=== PATIENT | male | born 1940 | race Caucasian/White ===

== ENCOUNTER 2016-10-21 17:15 | Emergency (ER) | payer MEDICARE, OTHER ==
--- NOTE | 2016-10-21 18:01 | ED Physician Documentation ---
PD HPI HEENT - Stated complaint Stated Complaint: DOUBLE VISION - Chief complaint Chief Complaint: Heent - History obtained from History obtained from: Patient, Family - History of Present Illness Timing - onset: How many days ago (2) Timing - duration: Days (2) Timing - details: Gradual onset Pain level max: 1 Pain level now: 1 Location: Other (mild headache) Improves: Nothing Associated symptoms: Headache (mild, holocranial). No: Fever, Congestion, Rhinorrhea, Trismus, Unable to swallow, Swollen nodes, Facial swelling - Additional information Additional information: noted horizontal diploplia for the past 2 days. resolves when covering one eye or the other. Review of Systems Ten Systems: 10 systems reviewed and negative Constitutional: denies: Fever, Chills Eyes: denies: Loss of vision, Decreased vision Ears: denies: Ear pain Nose: denies: Rhinorrhea / runny nose, Congestion Throat: denies: Sore throat Cardiac: denies: Chest pain / pressure Respiratory: denies: Cough GI: denies: Abdominal Pain, Nausea, Vomiting, Diarrhea Skin: denies: Rash Musculoskeletal: denies: Neck pain, Back pain Neurologic: denies: Focal weakness, Numbness, Headache PD PAST MEDICAL HISTORY - Past Medical History Past Medical History: Yes Cardiovascular: Hypertension, High cholesterol, [place] Neuro: Seizure disorder Endocrine/Autoimmune: Type 2 diabetes - Past Surgical History Past Surgical History: Yes General: Appendectomy, Bowel surgery Cardiovascular: CABG, Coronary stent - Present Medications Home Medications: Ambulatory Orders Medication Instructions Recorded Confirmed Aspirin 81 mg PO DAILY 10/21/16 10/21/16 Atorvastatin Calcium 40 mg PO DAILY 10/21/16 10/21/16 Levetiracetam [Keppra] 750 mg PO BID 10/21/16 10/21/16 Losartan/Hydrochlorothiazide 1 tab PO DAILY 10/21/16 10/21/16 [Losartan-Hctz 100-25 mg Tab] Metformin HCl 250 mg PO BID 10/21/16 10/21/16 Metoprolol Tartrate 25 mg PO BID 10/21/16 10/21/16 - Allergies Allergies/Adverse Reactions: Allergies Allergy/AdvReac Type Severity Reaction Status Date / Time diltiazem HCl * Allergy Unknown Verified 10/21/16 17:26 [From Cardizem] levofloxacin [From Levaquin] Allergy Unknown Verified 10/21/16 17:26 metronidazole Allergy Unknown Verified 10/21/16 17:26 sodium penathol Allergy Unknown Uncoded 10/21/16 17:26 - Social History Does the pt smoke?: No Smoking Status: Never smoker PD ED PE NORMAL - Vitals Vital signs reviewed: Yes - General General: Alert and oriented X 3, No acute distress, Well developed/nourished - HEENT HEENT: Atraumatic, PERRL, Ears normal, Moist mucous membranes, Pharynx benign - Neck Neck: Supple, no meningeal sign - Cardiac Cardiac: RRR - Respiratory Respiratory: No respiratory distress, Clear bilaterally - Abdomen Abdomen: Soft, Non tender, Non distended - Derm Derm: Warm and dry - Neuro Neuro: Alert and oriented X 3, No motor deficit, No sensory deficit, Normal speech, Other (L CN palsy. ) GCS Score: 15 - Psych Psych: Normal mood, Normal affect Results - Vitals Vitals: Vital Signs - 24 hr 10/21/16 10/21/16 10/21/16 17:20 19:14 20:01 Temperature 36.0 C L Heart Rate 66 62 65 Respiratory 18 15 18 Rate Blood Pressure 210/90 H 200/77 H 220/79 H O2 Saturation 97 96 10/21/16 10/21/16 10/21/16 20:03 20:05 20:15 Temperature Heart Rate 62 61 62 Respiratory 18 19 Rate Blood Pressure 201/85 H 223/77 H 213/94 H O2 Saturation 96 96 10/21/16 10/21/16 10/21/16 20:27 20:47 21:03 Temperature Heart Rate 65 72 77 Respiratory 16 17 17 Rate Blood Pressure 175/65 H 179/77 H 180/67 H O2 Saturation 97 97 97 10/21/16 10/21/16 22:13 22:51 Temperature 36.4 C L Heart Rate 75 62 Respiratory 14 14 Rate Blood Pressure 189/77 H 175/67 H O2 Saturation 96 97 Oxygen O2 Source Room air - Labs Labs: Laboratory Tests 10/21/16 10/21/16 10/21/16 18:00 18:00 18:40 WBC 7.5 RBC 4.39 L Hgb 14.8 Hct 43.3 MCV 98.7 H MCH 33.7 H MCHC 34.1 RDW 13.3 Plt Count 155 MPV 7.4 Neut # 5.0 Lymph # 1.6 [place] # 0.8 Eos # 0.0 Baso # 0.0 Absolute Nucleated RBC 0.01 Nucleated RBCs 0.1 Sodium 130 L Potassium 3.7 Chloride 93 L Carbon Dioxide 28 Anion Gap 9.0 BUN 17 Creatinine 0.9 Estimated GFR (MDRD) 82 L Glucose 153 H Calcium 9.5 Total Bilirubin 0.9 AST 25 ALT 31 Alkaline Phosphatase 42 Total Protein 7.6 Albumin 4.2 Globulin 3.4 Albumin/Globulin Ratio 1.2 Lipase 23 Urine Color YELLOW Urine Clarity CLEAR Urine pH 6.0 Ur Specific [place] 1.025 Urine Protein TRACE Urine Glucose (UA) NEGATIVE Urine Ketones NEGATIVE Urine Occult Blood TRACE-INTA Urine Nitrite NEGATIVE Urine Bilirubin NEGATIVE Urine Urobilinogen 0.2 (NORMAL) Ur Leukocyte Esterase NEGATIVE Ur Microscopic Review NOT INDICATED Urine Culture Comments NOT INDICATED - Rads (name of study) head CT Radiology: Prelim report reviewed, EMP read contemporaneously, See rad report ( No intracranial hemorrhage, mass lesion, or discrete acute intracranial process identified. Acute stroke is not excluded by CT. ) PD MEDICAL DECISION MAKING - ED course Complexity details: reviewed results, re-evaluated patient, considered differential, d/w patient, d/w family, d/w senior talent management consultant ED course: Patient is a 76-year-old male who presents to the emergency department with 2 days of horizontal diplopia. This resolves when covering one eye or the other. Found to have a left cranial nerve palsy. Isolated. No Camacho syndrome. No acute findings on head CT. He was hypertensive in the emergency department, but this improved with hydralazine. He states he did not take his medications today. I recommend strongly that he take his medications as prescribed. Discussed with the provider control valve mechanic for his primary care physician, Dr. Moreno who will make sure he gets followed up closely as an outpatient. Will likely need an MRI. No evidence of stroke. Patient is well-appearing, no evidence of infection. Patient and his state that they did recently get over a viral illness, possible that the isolated cranial nerve palsy is secondary to this viral syndrome. No evidence of endorgan damage with the hypertension. Patient and family counseled regarding signs and symptoms for which I believe and urgent re-evaluation would be necessary. Patient with good understanding of and agreement to plan and is comfortable going home at this time. NIHSS 0 This document was made in part using voice recognition software. While efforts are made to proofread this document, sound alike and grammatical errors may occur. Departure - Departure Disposition: 01 Home, Self Care Clinical Impression: Cranial nerve palsy Qualifiers: Laterality: left Qualified Code(s): H49.22 - Sixth [abducent] nerve palsy, left eye Hypertension Qualifiers: Hypertension type: unspecified secondary hypertension Qualified Code(s): I15.9 - Secondary hypertension, unspecified Condition: Good Instructions: ED HTN Established, Palsy Sixth Nerve About Follow-Up: Lon Multani MD [Primary Care Provider] - Tomorrow (call for appointment) Comments: Return if you worsen. You need to keep track of your blood pressures at home and likely need a brain MRI. I spoke with Dr. Tiffanie rider. Call the office in the morning. Discharge Date/Time: 10/21/16 22:51
[2016-10-21 18:10] LABS: BASOPHILS % (AUTO) 0.4 %; EOSINOPHILS % (AUTO) 0.6 %; HCT - HEMATOCRIT 43.3 % (42.0-52.0); HGB - HEMOGLOBIN 14.8 g/dL (14.0-18.0); LYMPHOCYTES # (AUTO) 1.6 10^3/uL (1.5-3.5); LYMPHOCYTES % (AUTO) 21.7 %; MEAN CORPUSCULAR HEMOGLOBIN 33.7 pg (27.0-31.0); MEAN CORPUSCULAR HGB CONC 34.1 g/dL (32.0-36.0); MEAN CORPUSCULAR VOLUME 98.7 fL (80.0-94.0); MEAN PLATELET VOLUME 7.4 fL (7.4-11.4); MONOCYTES # (AUTO) 0.8 10^3/uL (0.0-1.0); MONOCYTES % (AUTO) 10.4 %; NEUTROPHILS % (AUTO) 66.9 %; NUCLEATED RED BLOOD CELLS AUTO 0.1 /100WBC; RED BLOOD COUNT 4.39 10^6/uL (4.70-6.10); RED CELL DISTRIBUTION WIDTH 13.3 % (12.0-15.0); UNCORRECTED WHITE BLOOD COUNT 7.5 x10^3/uL; WHITE BLOOD COUNT 7.5 x10^3/uL (4.8-10.8)
[2016-10-21 18:21] LABS: ALBUMIN/GLOBULIN RATIO 1.2 (1.0-2.2); BILIRUBIN,TOTAL 0.9 mg/dL (0.2-1.0); CALCIUM 9.5 mg/dL (8.5-10.3); CREATININE 0.9 mg/dL (0.6-1.2); POTASSIUM 3.7 mmol/L (3.5-5.0); TOTAL PROTEIN 7.6 g/dL (6.7-8.2)
--- NOTE | 2016-10-21 19:00 | CT Preliminary Report ---
Exam: CT Head W/O Impression: No intracranial hemorrhage, mass lesion, or discrete acute intracranial process identified. Acute str wesley is not excluded by CT. SITE ID: [id number]
--- NOTE | 2016-10-21 19:03 | CT Report ---
EXAM: CT HEAD WITHOUT CONTRAST COMPARISON: None. CLINICAL HISTORY: Diplopia, hypertension TECHNIQUE: Axial CT images were obtained from the foramen magnum to the vertex without contrast In accordance with CT protocol optimization, one or more of the following dose reduction techniques w ere utilized for this exam: automated exposure control, adjustment of mA and/or KV based on patient s ize, or use of iterative reconstructive technique. FINDINGS: No intracranial hemorrhage. No mass lesions. No unexpected intra-or extra-axial fluid collections. Visualized orbits, paranasal sinuses and mastoids are unremarkable. Ventricles are prominent, temporal horns, presumed to reflect volume loss, asymmetrically involving t he hippocampi. No dense vessels. Visualized orbits, paranasal sinuses and mastoids are unremarkable. Impression: No intracranial hemorrhage, mass lesion, or discrete acute intracranial process identified. Acute str wesley is not excluded by CT. Referring Provider Line: [phone] SITE ID: [id number]
[2016-10-21 19:09] LABS: BILIRUBIN,URINE NEGATIVE (NEGATIVE)
[2016-10-21 19:12] LABS: UA CHARGE (STRIP ONLY) YES; UR CULTURE IF IND NOT INDICATED
[2016-10-21] MEDS ORDERED: METOPROLOL 5 MG/5 ML VIAL IVP STA (19:35)
[2016-10-21] MEDS ORDERED: SODIUM CHLORIDE 0.9% 1,000 ML IV ONE (19:36)
[2016-10-21] MEDS ORDERED: METOPROLOL 5 MG/5 ML VIAL IVP ONE (19:53)
[2016-10-21] MEDS ORDERED: hydrALAZINE INJ 20 MG/ML VIAL IVP STA (20:14)
[2016-10-21] MEDS ORDERED: MORPHINE 2 MG/ML SYRINGE IVP STA (20:15)
[2016-10-21] MEDS ORDERED: MORPHINE 2 MG/ML SYRINGE ONE (20:16)
[2016-10-21] MEDS ORDERED: hydrALAZINE INJ 20 MG/ML VIAL ONE (20:17)
[2016-10-21 22:57] VITALS: BP 175/67
== END 2016-10-21 22:51 | disposition home or self-care (01) ==
LOC: ED 17:15
DX: H49.22 Sixth [abducent] nerve palsy, left eye (principal); I10 Essential (primary) hypertension; I25.2 Old myocardial infarction; E11.9 Type 2 diabetes mellitus without complications; Z79.82 Long term (current) use of aspirin; Z95.1 Presence of aortocoronary bypass graft; Z95.5 Presence of coronary angioplasty implant and graft
CPT/HCPCS: 36415; 70450; 80053; 81001; 81003; 83690; 85025; 87086; 96361; 96374; 96375; 99284

== ENCOUNTER 2016-10-23 07:37 | Outpatient (CLI) | payer MEDICARE, OTHER | END 2016-10-23 07:38 | disposition critical access hospital (66) | LOC: EMS 07:37 | PROVIDERS: ATTEND Surgery | DX: R07.9 Chest pain, unspecified (principal) | CPT/HCPCS: A0425; A0427 ==

== ENCOUNTER 2016-10-23 08:05 | Emergency (ER) | payer MEDICARE, OTHER ==
--- NOTE | 2016-10-23 08:10 | ED Physician Documentation ---
PD HPI CHEST PAIN - Stated complaint Stated Complaint: CP - History obtained from History obtained from: Patient, EMS - History of Present Illness Timing - onset: Today Timing - onset during: Rest (had some left chest pain when getting out of bed, associated with elevated BP. Has been having low back, thighs, knees pain for several weeks or more, worsening, along with general weakness. Does have history of CAD but no recent exertional CP. Had some chest pain this morning, and given NTG by EMS, with drop in BP.) Timing - duration: Minutes (20-30) Timing - details: Abrupt onset, Now resolved Quality: Aching, Pain Location: Left chest Radiation: No: Back, Abdominal Worsened by: No: Inspiration, Movement, Palpation Associated symptoms: No: Shortness of air, Diaphoresis, Nausea, Cough Similar symptoms before: Diagnosis (has had CAD in the past, but no CP for past 2-3 years since last stents placed.) Recently seen: Emergency Dept (2 days ago for diplopia and has left 6th nerve palsy without obvious cause.) Review of Systems Constitutional: reports: Myalgias (for months, in low back and legs - seen by Neurologist with EMGs and labs done without current Dx.). denies: Fever, Chills Eyes: reports: Decreased vision (diplopia for 3 days) Ears: denies: Ear pain Nose: denies: Rhinorrhea / runny nose, Congestion Throat: denies: Sore throat Cardiac: denies: Palpitations, Pedal edema, Calf pain Respiratory: denies: Cough, Wheezing GI: denies: Abdominal Pain, Nausea, Vomiting, Diarrhea, Hematemesis, Bloody / black stool : denies: Dysuria, Frequency Musculoskeletal: reports: Back pain (chronic recurrent) Neurologic: reports: Generalized weakness (for few months, worsening). denies: Focal weakness, Numbness Psychiatric: denies: Depressed, Anxiety, Insomnia Endocrine: denies: Weight loss, Easy bruising / bleeding Immunocompromised: denies: Immunocompromised PD PAST MEDICAL HISTORY - Past Medical History Cardiovascular: Hypertension, High cholesterol, [place] Neuro: Seizure disorder Endocrine/Autoimmune: Type 2 diabetes - Past Surgical History Past Surgical History: Yes General: Appendectomy, Bowel surgery Cardiovascular: CABG, Coronary stent - Present Medications Home Medications: Ambulatory Orders Medication Instructions Recorded Confirmed Aspirin 81 mg PO DAILY 10/21/16 10/23/16 Atorvastatin Calcium 40 mg PO DAILY 10/21/16 10/23/16 Levetiracetam [Keppra] 750 mg PO BID 10/21/16 10/23/16 Losartan/Hydrochlorothiazide 1 tab PO DAILY 10/21/16 10/23/16 [Losartan-Hctz 100-25 mg Tab] Metformin HCl 250 mg PO BID 10/21/16 10/23/16 Metoprolol Tartrate 25 mg PO BID 10/21/16 10/23/16 Dexamethasone [Decadron] 4 mg PO DAILY #7 tablet 10/23/16 HYDROcod/ACETAM 5/325 [[place] 5/325] 1 tab PO Q6H PRN #15 tablet 10/23/16 - Allergies Allergies/Adverse Reactions: Allergies Allergy/AdvReac Type Severity Reaction Status Date / Time diltiazem HCl * Allergy Unknown Verified 10/23/16 08:16 [From Cardizem] levofloxacin [From Levaquin] Allergy Unknown Verified 10/23/16 08:16 metronidazole Allergy Unknown Verified 10/23/16 08:16 yellow dye Allergy Edema Verified 10/23/16 08:17 sodium penathol Allergy Unknown Uncoded 10/23/16 08:16 - Social History Does the pt smoke?: No Smoking Status: Never smoker PD ED PE NORMAL - Vitals Vital signs reviewed: Yes - General General: Alert and oriented X 3, No acute distress, Well developed/nourished - HEENT HEENT: PERRL. No: EOMI (left eye does not deviate to the left past midline; does move medially and up/down. ) - Neck Neck: Supple, no meningeal sign, No adenopathy - Cardiac Cardiac: RRR, No murmur - Respiratory Respiratory: Clear bilaterally - Abdomen Abdomen: Soft, Non tender - Male Male : Deferred - Rectal Rectal: Deferred - Back Back: No CVA TTP - Derm Derm: Normal color, Warm and dry - Extremities Extremities: No deformity, Normal ROM s pain, No edema, No calf tenderness / cord - Neuro Neuro: Alert and oriented X 3, No motor deficit, No sensory deficit, Normal speech. No: pipelines manager 2-12 intact (Left eye lateral deviation loss.) - Psych Psych: Normal mood, Normal affect Results - Vitals Vitals: Vital Signs - 24 hr 10/23/16 10/23/16 10/23/16 08:08 08:23 09:22 Temperature 35.7 C L Heart Rate 80 71 Respiratory 18 16 Rate Blood Pressure 175/114 H 171/70 H Blood Pressure 174/114 H [Left] Blood Pressure 163/64 H [Right] O2 Saturation 98 96 10/23/16 10/23/16 10/23/16 10:58 11:10 12:08 Temperature 36.2 C L Heart Rate 72 65 56 L Respiratory 16 16 16 Rate Blood Pressure 161/71 H 181/64 H 125/66 Blood Pressure [Left] Blood Pressure [Right] O2 Saturation 96 96 99 10/23/16 10/23/16 13:48 14:48 Temperature 36.5 C Heart Rate 65 62 Respiratory 15 18 Rate Blood Pressure 157/71 H 150/80 H Blood Pressure [Left] Blood Pressure [Right] O2 Saturation 96 98 Oxygen O2 Source Room air Oxygen Flow Rate 4 - EKG (time done) 08:16 Rate: Rate (enter#) (70) Rhythm: NSR [place]: Normal Intervals: Normal [place] Ischemia: Normal ST segments, Non specific changes (T waves flat/inverted anterolat. ). No: ST elevation c/w ischemia, ST depression Compare to prior EKG: Old EKG unavailable - Labs Labs: Laboratory Tests 10/23/16 10/23/16 10/23/16 09:07 09:07 09:07 WBC 8.4 RBC 4.29 L Hgb 14.5 Hct 42.2 MCV 98.4 H MCH 33.8 H MCHC 34.3 RDW 13.5 Plt Count 151 MPV 8.6 Neut # 6.1 Lymph # 1.4 L [place] # 0.8 Eos # 0.0 Baso # 0.0 Absolute Nucleated RBC 0.01 Nucleated RBCs 0.1 Manual Slide Review Indicated Platelet Estimate NORMAL (130-450,000) Platelet Morphology 1+ LARGE PLATELETS RBC Morph Micro Appear NORMAL APPEARANCE ESR 19 Sodium 133 L Potassium 3.8 Chloride 97 L Carbon Dioxide 26 Anion Gap 10.0 BUN 22 H Creatinine 0.9 Estimated GFR (MDRD) 82 L Glucose 158 H Calcium 9.4 Magnesium 2.0 Total Bilirubin 1.1 H AST 30 ALT 31 Alkaline Phosphatase 41 L Total Creatine Kinase 357 H Troponin I Total Protein 7.3 Albumin 4.2 Globulin 3.1 Albumin/Globulin Ratio 1.4 Lipase 20 L 10/23/16 09:07 WBC RBC Hgb Hct MCV MCH MCHC RDW Plt Count MPV Neut # Lymph # [place] # Eos # Baso # Absolute Nucleated RBC Nucleated RBCs Manual Slide Review Platelet Estimate Platelet Morphology RBC Morph Micro Appear ESR Sodium Potassium Chloride Carbon Dioxide Anion Gap BUN Creatinine Estimated GFR (MDRD) Glucose Calcium Magnesium Total Bilirubin AST ALT Alkaline Phosphatase Total Creatine Kinase Troponin I < 0.04 Total Protein Albumin Globulin Albumin/Globulin Ratio Lipase - Rads (name of study) brain MRI Radiology: Prelim report reviewed (no acute process) PD MEDICAL DECISION MAKING - ED course Complexity details: reviewed results, considered differential (consider statin as cause of the myositis/weakness. Brain MRI is okay so no mass lesion/ MS/ infarct regarding the CN6 lesion; could be idiopathic related to diabetes. BP was elevated some in ED but came down with just his own meds. ), d/w patient Departure - Departure Disposition: 01 Home, Self Care Clinical Impression: Myalgia and myositis Hypertension Qualifiers: Hypertension type: other secondary hypertension Qualified Code(s): I15.8 - Other secondary hypertension Cranial nerve palsy Qualifiers: Laterality: left Qualified Code(s): H49.22 - Sixth [abducent] nerve palsy, left eye Condition: Stable Record reviewed to determine appropriate education?: Yes Instructions: Palsy Sixth Nerve Tx, Palsy Sixth Nerve About, ED Muscle Aching Follow-Up: Lon Multani MD [Primary Care Provider] - Prescriptions: Dexamethasone [Decadron] 4 mg PO DAILY #7 tablet HYDROcod/ACETAM 5/325 [[place] 5/325] 1 tab PO Q6H PRN #15 tablet PRN Reason: Pain Comments: Maintain good hydration. Stop your atorvastatin cholesterol medicine as this might be causing the muscle aches and pains. Dexamethasone anti-inflammatory daily for a week. Use Tylenol 650 mg 3-4 times a day for pains and add hydrocodone if needed at bedtime or for severe pain. Follow-up with your primary care about a week and the neurologist in mid October as planned. Return sooner if worsening. Regarding the double vision with the muscle problem of the eye, hopefully this is some irritation of the nerve that will be self- limited but may take a month or so to improve. Discharge Date/Time: 10/23/16 15:31
[2016-10-23] MEDS ORDERED: MORPHINE 2 MG/ML SYRINGE IVP STA (08:52)
[2016-10-23] MEDS ORDERED: ACETAMINOPHEN 325 MG TABLET PO STA (08:52)
[2016-10-23] MEDS ORDERED: MORPHINE 2 MG/ML SYRINGE ONE (08:59)
[2016-10-23] MEDS ORDERED: ACETAMINOPHEN 325 MG TABLET PO ONE (08:59)
[2016-10-23 09:29] LABS: ALBUMIN/GLOBULIN RATIO 1.4 (1.0-2.2); BILIRUBIN,TOTAL 1.1 mg/dL (0.2-1.0); CALCIUM 9.4 mg/dL (8.5-10.3); CREATININE 0.9 mg/dL (0.6-1.2); POTASSIUM 3.8 mmol/L (3.5-5.0); TOTAL PROTEIN 7.3 g/dL (6.7-8.2)
[2016-10-23 09:31] LABS: BASOPHILS % (AUTO) 0.5 %; EOSINOPHILS % (AUTO) 0.3 %; HCT - HEMATOCRIT 42.2 % (42.0-52.0); HGB - HEMOGLOBIN 14.5 g/dL (14.0-18.0); LYMPHOCYTES # (AUTO) 1.4 10^3/uL (1.5-3.5); LYMPHOCYTES % (AUTO) 16.8 %; MEAN CORPUSCULAR HEMOGLOBIN 33.8 pg (27.0-31.0); MEAN CORPUSCULAR HGB CONC 34.3 g/dL (32.0-36.0); MEAN CORPUSCULAR VOLUME 98.4 fL (80.0-94.0); MEAN PLATELET VOLUME 8.6 fL (7.4-11.4); MONOCYTES # (AUTO) 0.8 10^3/uL (0.0-1.0); MONOCYTES % (AUTO) 9.6 %; NEUTROPHILS # (AUTO) 6.1 10^3/uL (1.5-6.6); NEUTROPHILS % (AUTO) 72.8 %; NUCLEATED RED BLOOD CELLS AUTO 0.1 /100WBC; RED BLOOD COUNT 4.29 10^6/uL (4.70-6.10); RED CELL DISTRIBUTION WIDTH 13.5 % (12.0-15.0); UNCORRECTED WHITE BLOOD COUNT 9.2 x10^3/uL; WHITE BLOOD COUNT 8.4 x10^3/uL (4.8-10.8)
[2016-10-23 10:01] LABS: PLATELET ESTIMATE, MANUAL NORMAL (130-450,000) (NORMAL); PLATELET MORPHOLOGY 1+ LARGE PLATELETS (NORMAL)
[2016-10-23] MEDS ORDERED: LORazepam 2 MG/ML SYRINGE IVP STA (10:24)
[2016-10-23] MEDS ORDERED: LORazepam 2 MG/ML SYRINGE ONE (10:37)
[2016-10-23] MEDS ORDERED: METOPROLOL 5 MG/5 ML VIAL IVP STA (13:51)
--- NOTE | 2016-10-23 14:01 | MRI Preliminary Report ---
Exam: MRI Brain W/O Impression: 1. A mild amount of white matter disease is identified in the supratentorial brain as described. 2. No acute intracranial pathology is demonstrated. In particular, no evidence of infarction, hemorrh age or space-occupying mass lesion. 3. Small linear focus of T2 hyperintensity in mid left cerebellum likely represents a sequela of jackie te, minor, embolic type ischemic infarction. 4. No other significant findings. No obvious etiology for left abducens nerve palsy is demonstrated. However, evaluation of the cavernous sinuses is very limited on this study performed without IV contr ast. SITE ID: [id number]
[2016-10-23] MEDS ORDERED: METOPROLOL 5 MG/5 ML VIAL IVP ONE (14:12)
[2016-10-23 14:49] VITALS: BP 150/80
--- NOTE | 2016-10-23 15:19 | MRI Report ---
MRI BRAIN WITHOUT CONTRAST INDICATION: 76-year-old male with three-day history of left cranial nerve palsy. History of Hodgki n's lymphoma and prostate cancer. TECHNIQUE: Unenhanced imaging of the brain and internal auditory canals has been performed. The following sequen may were obtained: Brain 1. T1 sagittal. 2. Axial T1 MPRAGE, FLAIR, T2, T2* and DWI. Internal auditory canals 1. Thin slice, fat saturated T2 coronal. 2. Thin slice, high-resolution, balanced FFE axial. COMPARISON: Head CT 10/21/2016. FINDINGS: The history of left abducens nerve palsy has been provided. 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 No other brainstem lesion i s demonstrated. There is no obvious abnormal enlargement of the left abducens nerve in the prepontine cistern on the images provided. There does appear to be some contact with a tortuous loop of the bas ilar artery (see images 25 through 41 of series 901) of uncertain significance. The cavernous sinuses cannot be evaluated on this study performed without IV contrast. No obvious skull base mass lesion i s demonstrated. No obvious asymmetric atrophy involving the left lateral rectus muscle. There is generalized, age-appropriate cerebral and cerebellar volume loss with associated, ex vacuo v entriculomegaly. No obvious discordance between the degree of ventriculomegaly and the amount of bharath ical sulcal dilatation to suggest the possibility of NPH or other form of hydrocephalus. There does a ppear to be disproportionately more advanced ex vacuo enlargement of the temporal horns of the latera l ventricles, in a pattern that can be seen with Alzheimer's disease. A very mild amount of white matter disease is identified in the supratentorial brain, manifested as f ocal and confluent T2 hyperintensities that are scattered throughout the periventricular, deep and donnelly bcortical white matter bilaterally. A frontoparietal distribution predominates. Tiny, old lacunar type infarctions are noted in the head of the right caudate nucleus. A small linear T2 hyperintense focus is identified in mid left cerebellum, likely representing the se quela of remote, minor, embolic type ischemic infarction. There appear to be flow voids for the main intracranial arteries. No abnormal diffusion restriction i s demonstrated. No evidence of acute or chronic hemorrhage on T2*GRE sequence. Limited assessment of the orbits reveals no gross pathology. Mild mucosal thickening is seen scattered throughout the ethmoid air cells. The paranasal sinuses are otherwise clear. No significant mastoid or middle ear effusion is seen. Marrow signal intensity in t he regional skeletal structures is unremarkable. IMPRESSION: 1. A mild amount of white matter disease is identified in the supratentorial brain as described. 2. No acute intracranial pathology is demonstrated. In particular, no evidence of infarction, hemorrh age or space-occupying mass lesion. 3. Small linear focus of T2 hyperintensity in mid left cerebellum likely represents a sequela of jackie te, minor, embolic-type ischemic infarction. 4. No other significant findings. No obvious etiology for left abducens nerve palsy is demonstrated. However, evaluation of the cavernous sinuses is very limited on this study performed without IV contr ast. Referring Provider Line: [phone] SITE ID: [id number]
== END 2016-10-23 15:31 | disposition home or self-care (01) ==
LOC: EDUNIT# → ED 08:05
DX: H49.22 Sixth [abducent] nerve palsy, left eye (principal); I10 Essential (primary) hypertension; M79.1 Myalgia; M60.9 Myositis, unspecified; I25.10 Atherosclerotic heart disease of native coronary artery without angina pectoris; Z98.61 Coronary angioplasty status; Z95.1 Presence of aortocoronary bypass graft; E11.9 Type 2 diabetes mellitus without complications; Z79.84 Long term (current) use of oral hypoglycemic drugs; G40.909 Epilepsy, unspecified, not intractable, without status epilepticus; Z79.82 Long term (current) use of aspirin
CPT/HCPCS: 36415; 70551; 80053; 82550; 83690; 83735; 84484; 85025; 85651; 93005; 96374; 96375; 99285; A9270; J2060

== ENCOUNTER 2016-10-23 19:29 | Outpatient (CLI) | payer MEDICARE, OTHER | END 2016-10-23 19:30 | disposition EMS.NT | LOC: EMS 19:29 | PROVIDERS: ATTEND Surgery | DX: Z03.89 Encounter for observation for other suspected diseases and conditions ruled out (principal) ==

== ENCOUNTER 2016-10-24 04:26 | Outpatient (CLI) | payer MEDICARE, OTHER | END 2016-10-24 04:27 | disposition critical access hospital (66) | LOC: EMS 04:26 | PROVIDERS: ATTEND Surgery | DX: R07.9 Chest pain, unspecified (principal) | CPT/HCPCS: A0425; A0427 ==

== ENCOUNTER 2016-10-24 05:01 | Emergency (ER) | payer MEDICARE, OTHER ==
--- NOTE | 2016-10-24 06:06 | XRAY Preliminary Report ---
Exam: XR Chest 2 View PA/LAT IMPRESSION: 1. Mild cardiomegaly and postoperative changes. 2. Mild bibasilar atelectasis. [facility] SITE ID: [id number]
--- NOTE | 2016-10-24 06:08 | XRAY Report ---
EXAM: CHEST RADIOGRAPHY EXAM DATE: 10/24/2016 05:58 AM. CLINICAL HISTORY: Chest pain. COMPARISON: 01/22/2010. TECHNIQUE: 2 views. FINDINGS: Lungs/Pleura: Mild bibasilar atelectasis. No pleural effusion seen. No pneumothorax. Mediastinum: Mild cardiomegaly. Other: Median sternotomy and CABG. IMPRESSION: 1. Mild cardiomegaly and postoperative changes. 2. Mild bibasilar atelectasis. [facility] Referring Provider Line: [phone] SITE ID: [id number]
[2016-10-24] MEDS ORDERED: ONDANSETRON ODT 4 MG TABLET TL STA (06:14)
[2016-10-24] MEDS ORDERED: ONDANSETRON ODT 4 MG TABLET ONE (06:21)
[2016-10-24 06:27] LABS: BASOPHILS % (AUTO) 0.4 %; EOSINOPHILS # (AUTO) 0.1 10^3/uL (0.0-0.7); EOSINOPHILS % (AUTO) 0.8 %; HGB - HEMOGLOBIN 14.2 g/dL (14.0-18.0); LYMPHOCYTES # (AUTO) 1.4 10^3/uL (1.5-3.5); LYMPHOCYTES % (AUTO) 17.2 %; MEAN CORPUSCULAR HEMOGLOBIN 33.8 pg (27.0-31.0); MEAN CORPUSCULAR HGB CONC 33.9 g/dL (32.0-36.0); MEAN CORPUSCULAR VOLUME 99.7 fL (80.0-94.0); MEAN PLATELET VOLUME 7.9 fL (7.4-11.4); MONOCYTES # (AUTO) 0.9 10^3/uL (0.0-1.0); MONOCYTES % (AUTO) 10.8 %; NEUTROPHILS # (AUTO) 5.9 10^3/uL (1.5-6.6); NEUTROPHILS % (AUTO) 70.8 %; NUCLEATED RED BLOOD CELLS AUTO 0.1 /100WBC; RED BLOOD COUNT 4.21 10^6/uL (4.70-6.10); RED CELL DISTRIBUTION WIDTH 13.2 % (12.0-15.0); UNCORRECTED WHITE BLOOD COUNT 8.3 x10^3/uL; WHITE BLOOD COUNT 8.3 x10^3/uL (4.8-10.8)
[2016-10-24 06:39] LABS: ALBUMIN/GLOBULIN RATIO 1.3 (1.0-2.2); CALCIUM 8.9 mg/dL (8.5-10.3); CREATININE 0.9 mg/dL (0.6-1.2); POTASSIUM 3.5 mmol/L (3.5-5.0); TOTAL PROTEIN 6.8 g/dL (6.7-8.2)
--- NOTE | 2016-10-24 07:15 | ED Physician Documentation ---
PD HPI CHEST PAIN - Stated complaint Stated Complaint: CP - Chief complaint Chief Complaint: Cardiac - History obtained from History obtained from: Patient, Family, EMS - History of Present Illness Timing - onset: How many hours ago (2) Timing - onset during: Sleep Timing - details: Abrupt onset, Now resolved Quality: Pressure, Aching Location: Substernal, Left chest Improved by: Nitro, ASA Associated symptoms: No: Shortness of air, Diaphoresis, Nausea Similar symptoms before: Work up / diagnostics, Treatment Recently seen: Emergency Dept - Additional information Additional information: Patient is a 76 year old male with a history of prior [place] and cardiac stents who is presenting to the emergency department for chest pain. Patient was seen yesterday and had some pain that resolved. Patient states that he woke up again today with substernal chest pain that radiated to the left chest. Patient recieved nitro by ems and that relieved the pain. Review of Systems Constitutional: denies: Fever, Chills Ears: denies: Loss of hearing, Ear pain Nose: denies: Rhinorrhea / runny nose, Congestion Throat: denies: Dental pain / toothache Cardiac: reports: Chest pain / pressure. denies: Palpitations Respiratory: denies: Cough GI: denies: Abdominal Pain, Nausea, Vomiting : denies: Dysuria, Frequency Musculoskeletal: denies: Neck pain, Back pain, Extremity pain Neurologic: denies: Numbness Psychiatric: denies: Depressed Immunocompromised: denies: Immunocompromised PD PAST MEDICAL HISTORY - Past Medical History Cardiovascular: Hypertension, High cholesterol, [place] Neuro: Seizure disorder Endocrine/Autoimmune: Type 2 diabetes - Past Surgical History Past Surgical History: Yes General: Appendectomy, Bowel surgery Cardiovascular: CABG, Coronary stent - Present Medications Home Medications: Ambulatory Orders Medication Instructions Recorded Confirmed Aspirin 81 mg PO DAILY 10/21/16 10/24/16 Atorvastatin Calcium 40 mg PO DAILY 10/21/16 10/24/16 Levetiracetam [Keppra] 750 mg PO BID 10/21/16 10/24/16 Losartan/Hydrochlorothiazide 1 tab PO DAILY 10/21/16 10/24/16 [Losartan-Hctz 100-25 mg Tab] Metformin HCl 250 mg PO BID 10/21/16 10/24/16 Metoprolol Tartrate 25 mg PO BID 10/21/16 10/24/16 Dexamethasone [Decadron] 4 mg PO DAILY #7 tablet 10/23/16 10/24/16 HYDROcod/ACETAM 5/325 [Anabel 5/325] 1 tab PO Q6H PRN #15 tablet 10/23/16 - Allergies Allergies/Adverse Reactions: Allergies Allergy/AdvReac Type Severity Reaction Status Date / Time diltiazem HCl * Allergy Unknown Verified 10/24/16 05:06 [From Cardizem] levofloxacin [From Levaquin] Allergy Unknown Verified 10/24/16 05:06 metronidazole Allergy Unknown Verified 10/24/16 05:06 yellow dye Allergy Edema Verified 10/24/16 05:06 sodium penathol Allergy Unknown Uncoded 10/23/16 08:16 - Social History Does the pt smoke?: No Smoking Status: Never smoker PD ED PE NORMAL - Vitals Vital signs reviewed: Yes - General General: Alert and oriented X 3 - HEENT HEENT: Atraumatic, PERRL - Neck Neck: Supple, no meningeal sign, No JVD - Cardiac Cardiac: RRR, No murmur - Respiratory Respiratory: No respiratory distress - Abdomen Abdomen: Soft - Derm Derm: Normal color, Warm and dry, No rash - Extremities Extremities: No deformity - Neuro Neuro: Alert and oriented X 3, turbine room attendant 2-12 intact, No motor deficit, No sensory deficit, Normal speech - Psych Psych: Normal affect PD ED PE EXPANDED - Cardiac Cardiac: Regular Rate. No: Chest wall TTP - Extremities Extremities: Pedal edema bilateral Results - Vitals Vitals: Vital Signs - 24 hr 10/24/16 10/24/16 05:04 06:23 Temperature 36 C L Heart Rate 77 72 Respiratory 16 16 Rate Blood Pressure 131/69 H 171/82 H O2 Saturation 95 95 Oxygen O2 Source Room air - EKG (time done) 0504 Rate: Rate (enter#) (75) Rhythm: NSR Denio: LAD Intervals: Normal MT Ischemia: T wave inversion Compare to prior EKG: Unchanged from prior EKG - Labs Labs: Laboratory Tests 10/24/16 10/24/16 10/24/16 06:11 06:11 06:11 WBC 8.3 RBC 4.21 L Hgb 14.2 Hct 42.0 MCV 99.7 H MCH 33.8 H MCHC 33.9 RDW 13.2 Plt Count 149 MPV 7.9 Neut # 5.9 Lymph # 1.4 L [place] # 0.9 Eos # 0.1 Baso # 0.0 Absolute Nucleated RBC 0.01 Nucleated RBCs 0.1 Sodium 133 L Potassium 3.5 Chloride 95 L Carbon Dioxide 28 Anion Gap 10.0 BUN 21 H Creatinine 0.9 Estimated GFR (MDRD) 82 L Glucose 162 H Calcium 8.9 Total Bilirubin 1.0 AST 25 ALT 28 Alkaline Phosphatase 36 L Troponin I < 0.04 B-Natriuretic Peptide Total Protein 6.8 Albumin 3.8 Globulin 3.0 Albumin/Globulin Ratio 1.3 Lipase 31 10/24/16 06:11 WBC RBC Hgb Hct MCV MCH MCHC RDW Plt Count MPV Neut # Lymph # [place] # Eos # Baso # Absolute Nucleated RBC Nucleated RBCs Sodium Potassium Chloride Carbon Dioxide Anion Gap BUN Creatinine Estimated GFR (MDRD) Glucose Calcium Total Bilirubin AST ALT Alkaline Phosphatase Troponin I B-Natriuretic Peptide 40 Total Protein Albumin Globulin Albumin/Globulin Ratio Lipase - Rads (name of study) chest x-ray Radiology: Final report received (cardiomegaly) PD MEDICAL DECISION MAKING - ED course Complexity details: reviewed old records, reviewed results, re-evaluated patient , considered differential, d/w patient, d/w family, d/w men's custom hair piece consultant ED course: Patient was seen and examined at bedside. ekg was performed and had t wave inversions but was unchanged from yesterday. IV access was gained and labs were drawn. Patient was presently chest pain free. When patient's diagnostics came back patient had a HEART score of 4 and required further care. patient's balloon maker was at [facility] who was contacted. the case was discussed with the covering PA and it was decided to send the patient for further evaluation and care. Arrangements were made for transfer. Departure - Departure Disposition: 02 Transfer Acute Care Hosp Clinical Impression: Chest pain Condition: Stable
[2016-10-24 09:14] VITALS: BP 161/86
== END 2016-10-24 09:10 | disposition short-term general hospital (02) ==
LOC: EDUNIT# → ED 05:01
DX: R07.9 Chest pain, unspecified (principal); I25.10 Atherosclerotic heart disease of native coronary artery without angina pectoris; Z98.61 Coronary angioplasty status; Z95.1 Presence of aortocoronary bypass graft; I10 Essential (primary) hypertension; I25.2 Old myocardial infarction; E78.00 Pure hypercholesterolemia, unspecified; E11.9 Type 2 diabetes mellitus without complications; Z79.84 Long term (current) use of oral hypoglycemic drugs; G40.909 Epilepsy, unspecified, not intractable, without status epilepticus; Z79.82 Long term (current) use of aspirin
CPT/HCPCS: 71020; 80053; 83690; 83880; 84484; 85025; 93005; 99284; 99285; Q0162

== ENCOUNTER 2016-10-24 09:13 | Outpatient (CLI) | payer MEDICARE, OTHER | END 2016-10-24 09:14 | disposition short-term general hospital (02) | LOC: EMS 09:13 | PROVIDERS: ATTEND Surgery | DX: R07.9 Chest pain, unspecified (principal) | CPT/HCPCS: A0170; A0425; A0426 ==

== ENCOUNTER 2016-10-28 05:41 | Outpatient (CLI) | payer MEDICARE, OTHER | END 2016-10-28 05:42 | disposition EMS.NT | LOC: EMS 05:41 | PROVIDERS: ATTEND Surgery | DX: Z03.89 Encounter for observation for other suspected diseases and conditions ruled out (principal); W06.XXXA Fall from bed, initial encounter; Y92.003 Bedroom of unspecified non-institutional (private) residence as the place of occurrence of the external cause ==

== ENCOUNTER 2016-10-28 15:25 | Outpatient (CLI) | payer MEDICARE, OTHER | END 2016-10-28 15:26 | disposition critical access hospital (66) | LOC: EMS 15:25 | PROVIDERS: ATTEND Surgery | DX: R19.7 Diarrhea, unspecified (principal); R53.1 Weakness | CPT/HCPCS: A0425; A0427 ==

== ENCOUNTER 2016-10-28 15:58 | Emergency (ER) | payer MEDICARE, OTHER ==
[2016-10-28] MEDS ORDERED: SODIUM CHLORIDE 0.9% 1,000 ML IV ONE (16:39)
--- NOTE | 2016-10-28 17:07 | ED Physician Documentation ---
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 and had a MRI over the weekend he has been constipated as well so used 2 enemas and now has had diarrhea all day (no blood) plus been hot outside and in his house so fears dehydartion main reason for todays visit is dehydration and worsening of already severe diffuse weakness pt denies ARANGO CP AP though he has had L posterior shoulder pain for several weeks lasting days a time (but had two neg trop in the last week and was recently sent out for cardio work up on 10/24 - so feel this is already adequately worked up) denies NV cough urinary sx Review of Systems Constitutional: denies: Fever, Chills Ears: denies: Ear pain Throat: denies: Sore throat Cardiac: denies: Chest pain / pressure, Palpitations Respiratory: denies: Dyspnea GI: reports: Diarrhea. denies: Abdominal Pain, Nausea, Vomiting, Bloody / black stool Neurologic: reports: Generalized weakness Endocrine: denies: Easy bruising / bleeding Immunocompromised: denies: Immunocompromised PD PAST MEDICAL HISTORY - Past Medical History Past Medical History: Yes Cardiovascular: Hypertension, High cholesterol, [place] Neuro: Seizure disorder Endocrine/Autoimmune: Type 2 diabetes - Past Surgical History Past Surgical History: Yes General: Appendectomy, Bowel surgery Cardiovascular: CABG, Coronary stent - Present Medications Home Medications: Ambulatory Orders Medication Instructions Recorded Confirmed Aspirin 81 mg PO DAILY 10/21/16 10/28/16 Atorvastatin Calcium 40 mg PO DAILY 10/21/16 10/28/16 Levetiracetam [Keppra] 750 mg PO BID 10/21/16 10/28/16 Losartan/Hydrochlorothiazide 1 tab PO DAILY 10/21/16 10/28/16 [Losartan-Hctz 100-25 mg Tab] Metformin HCl 250 mg PO BID 10/21/16 10/28/16 Metoprolol Tartrate 25 mg PO BID 10/21/16 10/28/16 Dexamethasone [Decadron] 4 mg PO DAILY #7 tablet 10/23/16 10/28/16 HYDROcod/ACETAM 5/325 [Early 5/325] 1 tab PO Q6H PRN #15 tablet 10/23/16 - Allergies Allergies/Adverse Reactions: Allergies Allergy/AdvReac Type Severity Reaction Status Date / Time diltiazem HCl * Allergy Unknown Verified 10/28/16 16:14 [From Cardizem] levofloxacin [From Levaquin] Allergy Unknown Verified 10/28/16 16:14 metronidazole Allergy Unknown Verified 10/28/16 16:14 yellow dye Allergy Edema Verified 10/28/16 16:14 sodium penathol Allergy Unknown Uncoded 10/23/16 08:16 - Social History Does the pt smoke?: No Smoking Status: Never smoker Does the pt have substance abuse?: No PD ED PE NORMAL - Vitals Vital signs reviewed: Yes - General General: Alert and oriented X 3 - HEENT HEENT: PERRL. No: EOMI (L eye cannot look lateral) - Neck Neck: Supple, no meningeal sign - Cardiac Cardiac: RRR - Respiratory Respiratory: No respiratory distress, Clear bilaterally - Abdomen Abdomen: Soft, Non tender - Derm Derm: Normal color - Extremities Extremities: No edema, No calf tenderness / cord - Neuro Neuro: Alert and oriented X 3, No motor deficit, No sensory deficit, Normal speech, Other (aside from pre-existing cranial nerve 6 palsy NIHSS zero). No: rhia 2-12 intact (cranial nerve 6 palsy) Results - Vitals Vitals: Vital Signs - 24 hr 10/28/16 10/28/16 16:09 18:28 Temperature 36.8 C Heart Rate 71 71 Respiratory 20 16 Rate Blood Pressure 134/62 H 150/69 H O2 Saturation 95 95 Oxygen O2 Source Room air - Labs Labs: Laboratory Tests 10/28/16 10/28/16 10/28/16 17:10 17:40 17:40 WBC 14.3 H RBC 4.20 L Hgb 14.3 Hct 41.8 L MCV 99.4 H MCH 34.0 H MCHC 34.1 RDW 13.2 Plt Count 161 MPV 8.1 Neut # 12.2 H Lymph # 1.3 L [place] # 0.8 Eos # 0.0 Baso # 0.1 Absolute Nucleated RBC 0.01 Nucleated RBCs 0.1 Sodium 127 L Potassium 4.1 Chloride 93 L Carbon Dioxide 25 Anion Gap 9.0 BUN 36 H Creatinine 1.1 Estimated GFR (MDRD) 65 L Glucose 175 H Calcium 8.8 Total Bilirubin 1.0 AST 20 ALT 33 Alkaline Phosphatase 35 L Total Protein 6.9 Albumin 3.7 Globulin 3.2 Albumin/Globulin Ratio 1.2 Lipase 35 Urine Color YELLOW Urine Clarity CLEAR Urine pH 5.5 Ur Specific [place] 1.015 Urine Protein NEGATIVE Urine Glucose (UA) NEGATIVE Urine Ketones NEGATIVE Urine Occult Blood NEGATIVE Urine Nitrite NEGATIVE Urine Bilirubin NEGATIVE Urine Urobilinogen 0.2 (NORMAL) Ur Leukocyte Esterase NEGATIVE Ur Microscopic Review NOT INDICATED Urine Culture Comments NOT INDICATED PD MEDICAL DECISION MAKING - ED course ED course: main reason for ER visit today is diarrhea and dehydration from summer heat - other issues such as chronic muscle aches and progressive weakness and the L 6th nerve palsy are not new - pt recently had a cardiac work up as well - labs done, UA and CXR to look for infection - WBC 14 but no infectious source found, hyponatremia is new but mild and pt was given NS in ED regarding L shoulder blade pain: pt has had this for weeks, had two neg trop this week here at and was transferred to [facility] and had neg nuc stress there as well, he describes the pain as a full int ache, not sharp or tearing, somewhat worse with moving, he has mild cardiomegaly on CR but his mediatinum is not wide and is similar on serial CXR, he is not soa hypoxic or tachypneic and has no asymmetrical leg swelling so doubt PE or dissection and do not think risk of IV contrast when he is already dehydrated is appropriate at this time - also in the setting of other myalgias for which he is being work up no diarrhea in ED, pt given IVF, will reassure and dc Departure - Departure Disposition: 01 Home, Self Care Clinical Impression: Dehydration Condition: Good Instructions: ED Dehydration Follow-Up: Lon Multani MD [Primary Care Provider] - Comments: Your white blood cell count was slightly elevated but the urine and chest xray did not show any sign of infection You have slightly low sodium today which is new - we gave you saline in your IV - please follow up with your PMD to get your level rechecked next week The xray did not show a problem to explain your left shoulder blade pain and you just had a cardiac evaluation earlier this week You have not had any more diarrhea and you have been rehydrated so I think you can go home for now and continue to work with your PMD about the other medical issues that are already being worked up. Please get your blood pressure rechecked too
[2016-10-28 17:20] LABS: BILIRUBIN,URINE NEGATIVE (NEGATIVE); PH,URINE 5.5 PH (5.0-7.5)
[2016-10-28 17:21] LABS: UA CHARGE (STRIP ONLY) YES; UR CULTURE IF IND NOT INDICATED
--- NOTE | 2016-10-28 17:37 | XRAY Preliminary Report ---
Exam: XR Chest 2 View PA/LAT IMPRESSION: No acute disease. [facility] SITE ID: [id number]
--- NOTE | 2016-10-28 17:40 | XRAY Report ---
EXAM: CHEST RADIOGRAPHY EXAM DATE: 10/28/2016 05:15 PM. CLINICAL HISTORY: Weakness. COMPARISON: 10/24/2016. TECHNIQUE: 2 views. FINDINGS: Lungs/Pleura: No definite localized infiltrate, consolidation, effusion, or pneumothorax. Mediastinum: Mild cardiomegaly, probably unchanged. Upper lobe vessels not distended. Other: Status post median sternotomy. Degenerative changes. IMPRESSION: No acute disease. [facility] Referring Provider Line: [phone] SITE ID: [id number]
[2016-10-28 17:53] LABS: BASOPHILS # (AUTO) 0.1 10^3/uL (0.0-0.1); BASOPHILS % (AUTO) 0.4 %; HCT - HEMATOCRIT 41.8 % (42.0-52.0); HGB - HEMOGLOBIN 14.3 g/dL (14.0-18.0); LYMPHOCYTES # (AUTO) 1.3 10^3/uL (1.5-3.5); LYMPHOCYTES % (AUTO) 8.9 %; MEAN CORPUSCULAR HGB CONC 34.1 g/dL (32.0-36.0); MEAN CORPUSCULAR VOLUME 99.4 fL (80.0-94.0); MEAN PLATELET VOLUME 8.1 fL (7.4-11.4); MONOCYTES # (AUTO) 0.8 10^3/uL (0.0-1.0); MONOCYTES % (AUTO) 5.8 %; NEUTROPHILS # (AUTO) 12.2 10^3/uL (1.5-6.6); NEUTROPHILS % (AUTO) 84.9 %; NUCLEATED RED BLOOD CELLS AUTO 0.1 /100WBC; RED CELL DISTRIBUTION WIDTH 13.2 % (12.0-15.0); UNCORRECTED WHITE BLOOD COUNT 14.3 x10^3/uL; WHITE BLOOD COUNT 14.3 x10^3/uL (4.8-10.8)
[2016-10-28 18:01] LABS: ALBUMIN/GLOBULIN RATIO 1.2 (1.0-2.2); CALCIUM 8.8 mg/dL (8.5-10.3); CREATININE 1.1 mg/dL (0.6-1.2); POTASSIUM 4.1 mmol/L (3.5-5.0); TOTAL PROTEIN 6.9 g/dL (6.7-8.2)
[2016-10-28 19:56] VITALS: BP 155/54
== END 2016-10-28 20:23 | disposition home or self-care (01) ==
LOC: EDUNIT# → SUPCPDRO 15:58 → ED 15:58
DX: E86.0 Dehydration (principal); E87.6 Hypokalemia; I25.2 Old myocardial infarction; I10 Essential (primary) hypertension; E11.9 Type 2 diabetes mellitus without complications; Z95.1 Presence of aortocoronary bypass graft; Z95.5 Presence of coronary angioplasty implant and graft; Z79.82 Long term (current) use of aspirin
CPT/HCPCS: 36415; 71020; 80053; 81001; 81003; 83690; 85025; 87086; 99283; 99284

== ENCOUNTER 2016-11-12 15:21 | Outpatient (CLI) | payer MEDICARE, OTHER | END 2016-11-12 15:22 | disposition short-term general hospital (02) | LOC: EMS 15:21 | PROVIDERS: ATTEND Surgery | DX: R53.1 Weakness (principal) | CPT/HCPCS: A0170; A0425; A0428 ==

== ENCOUNTER 2017-04-14 00:14 | Outpatient (CLI) | payer MEDICARE, OTHER | END 2017-04-14 00:15 | disposition EMS.NT | LOC: EMS 00:14 | PROVIDERS: ATTEND Surgery | DX: Z03.89 Encounter for observation for other suspected diseases and conditions ruled out (principal); W18.39XA Other fall on same level, initial encounter; Y92.009 Unspecified place in unspecified non-institutional (private) residence as the place of occurrence of the external cause ==

== ENCOUNTER 2017-04-29 17:13 | Outpatient (CLI) | payer MEDICARE, OTHER | END 2017-04-29 17:14 | disposition EMS.NT | LOC: EMS 17:13 | PROVIDERS: ATTEND Surgery | DX: S00.01XA Abrasion of scalp, initial encounter (principal); W18.39XA Other fall on same level, initial encounter; Y93.01 Activity, walking, marching and hiking; Y92.009 Unspecified place in unspecified non-institutional (private) residence as the place of occurrence of the external cause ==

== ENCOUNTER 2017-06-23 13:12 | Outpatient (CLI) | payer MEDICARE, OTHER ==
--- NOTE | 2017-06-23 14:11 | XRAY Report ---
MODIFIED BARIUM SWALLOW: 06/23/2017 CLINICAL INDICATION: CIDP. FINDINGS: Various consistencies of barium were prepared and administered in conjunction with Speech Pathology. There was penetration without aspiration with mixed consistency and thin liquids. Other consistencies were unremarkable. Please also refer to full report from Speech Pathology. IMPRESSION: PENETRATION WITH MIXED CONSISTENCIES AND THIN LIQUIDS. FLUOROSCOPY TIME: 2 minutes 28 seconds; 1 spot image obtained (cinefluoroscopy recorded). TD: 06/23/2017 14:10
== END 2017-06-23 13:13 | disposition home or self-care (01) ==
LOC: DI 13:12
PROVIDERS: ATTEND Internal Medicine
DX: G61.81 Chronic inflammatory demyelinating polyneuritis (principal)
CPT/HCPCS: 74230; 92611; G8996; G8997

== ENCOUNTER 2018-01-28 18:15 | Outpatient (CLI) | payer MEDICARE, OTHER | END 2018-01-28 18:16 | disposition EMS.NT | LOC: EMS 18:15 | PROVIDERS: ATTEND Surgery | DX: Z03.89 Encounter for observation for other suspected diseases and conditions ruled out (principal) ==

== ENCOUNTER 2018-04-27 10:28 | Outpatient (CLI) | payer MEDICARE, OTHER ==
[2018-04-27 18:06] LABS: HB2 TOTAL 14.7 g/dL; HEMOGLOBIN A1C 1.02 g/dL; HEMOGLOBIN A1C % 8.5 % (4.6-6.2)
[2018-04-27 18:19] LABS: ALBUMIN 3.6 g/dL (3.2-5.5); ALBUMIN/GLOBULIN RATIO 1.2 (1.0-2.2); BILIRUBIN,TOTAL 0.9 mg/dL (0.2-1.0); CALCIUM 8.9 mg/dL (8.5-10.3); CREATININE 0.9 mg/dL (0.6-1.2); TOTAL PROTEIN 6.6 g/dL (6.7-8.2)
== END 2018-04-27 10:29 | disposition home or self-care (01) ==
LOC: LAB.F 10:28
PROVIDERS: ATTEND Internal Medicine
DX: E11.65 Type 2 diabetes mellitus with hyperglycemia (principal)
CPT/HCPCS: 36415; 80053; 83036

== ENCOUNTER 2018-07-25 08:00 | Outpatient (CLI) | payer MEDICARE, OTHER ==
[2018-07-25 18:15] LABS: BASOPHILS % (AUTO) 0.4 %; EOSINOPHILS # (AUTO) 0.1 10^3/uL (0.0-0.7); EOSINOPHILS % (AUTO) 0.7 %; HGB - HEMOGLOBIN 14.5 g/dL (14.0-18.0); LYMPHOCYTES # (AUTO) 0.9 10^3/uL (1.5-3.5); LYMPHOCYTES % (AUTO) 8.2 %; MEAN CORPUSCULAR HEMOGLOBIN 32.8 pg (27.0-31.0); MEAN CORPUSCULAR HGB CONC 32.7 g/dL (32.0-36.0); MEAN CORPUSCULAR VOLUME 100.4 fL (80.0-94.0); MEAN PLATELET VOLUME 9.9 fL (7.4-11.4); MONOCYTES # (AUTO) 0.5 10^3/uL (0.0-1.0); MONOCYTES % (AUTO) 4.9 %; NEUTROPHILS # (AUTO) 9.2 10^3/uL (1.5-6.6); NEUTROPHILS % (AUTO) 85.8 %; PLT - PLATELET COUNT 121 10^3/uL (130-450); RED BLOOD COUNT 4.41 10^6/uL (4.70-6.10); RED CELL DISTRIBUTION WIDTH 14.5 % (12.0-15.0); WHITE BLOOD COUNT 10.7 x10^3/uL (4.8-10.8)
[2018-07-25 18:39] LABS: PLATELET ESTIMATE, MANUAL DECREASED (<130,000) (NORMAL); PLATELET MORPHOLOGY NORMAL APPEARANCE (NORMAL); RBC MORPHOLOGY (MULTIPLE) 1+ MACROCYTOSIS (NORMAL)
[2018-07-25 18:54] LABS: ALBUMIN/GLOBULIN RATIO 1.3 (1.0-2.2); BILIRUBIN,TOTAL 0.8 mg/dL (0.2-1.0); CALCIUM 9.3 mg/dL (8.5-10.3); CREATININE 0.9 mg/dL (0.6-1.2); TOTAL PROTEIN 7.2 g/dL (6.7-8.2)
[2018-07-25 19:49] LABS: HB2 TOTAL 15.5 g/dL; HEMOGLOBIN A1C 0.99 g/dL
== END 2018-07-25 23:59 | disposition home or self-care (01) ==
LOC: LAB.S 08:00
PROVIDERS: ATTEND Internal Medicine
DX: E11.65 Type 2 diabetes mellitus with hyperglycemia (principal)
CPT/HCPCS: 36415; 80053; 83036; 85025

== ENCOUNTER 2018-11-15 08:16 | Outpatient (CLI) | payer MEDICARE, OTHER ==
[2018-11-15 10:12] LABS: BASOPHILS % (AUTO) 0.3 %; EOSINOPHILS % (AUTO) 0.5 %; HGB - HEMOGLOBIN 14.4 g/dL (14.0-18.0); LYMPHOCYTES # (AUTO) 2.2 10^3/uL (1.5-3.5); LYMPHOCYTES % (AUTO) 29.2 %; MEAN CORPUSCULAR HEMOGLOBIN 31.4 pg (27.0-31.0); MEAN CORPUSCULAR HGB CONC 30.7 g/dL (32.0-36.0); MEAN CORPUSCULAR VOLUME 102.4 fL (80.0-94.0); MEAN PLATELET VOLUME 10.8 fL (7.4-11.4); MONOCYTES # (AUTO) 0.7 10^3/uL (0.0-1.0); MONOCYTES % (AUTO) 8.7 %; NEUTROPHILS # (AUTO) 4.5 10^3/uL (1.5-6.6); NEUTROPHILS % (AUTO) 60.5 %; PLT - PLATELET COUNT 142 10^3/uL (130-450); RED BLOOD COUNT 4.58 10^6/uL (4.70-6.10); RED CELL DISTRIBUTION WIDTH 14.3 % (12.0-15.0); WHITE BLOOD COUNT 7.5 x10^3/uL (4.8-10.8)
[2018-11-15 10:28] LABS: CREATININE,URINE 291.1 mg/dL; MICROALBUM/CREATININE RATIO,UR 55.7 ug/mg (<30.0); MICROALBUMIN,URINE 16.2 mg/dL (0-300.0)
[2018-11-15 10:35] LABS: ALBUMIN/GLOBULIN RATIO 1.3 (1.0-2.2); ALKALINE PHOSPHATASE 33 IU/L (42-121); ALT ALANINE AMINOTRANSFERASE 37 IU/L (10-60); AST ASPARTATE AMINOTRANSFERASE 24 IU/L (10-42); BILIRUBIN,TOTAL 0.6 mg/dL (0.2-1.0); BUN - BLOOD UREA NITROGEN 18 mg/dL (6-20); CALCIUM 9.7 mg/dL (8.5-10.3); CARBON DIOXIDE - CO2 29 mmol/L (21-32); CHLORIDE 102 mmol/L (101-111); CHOLESTEROL 145 mg/dL; GFR - MDRD 72 (>89); GLUCOSE 111 mg/dL (70-100); HDL CHOLESTEROL 74 mg/dL; LDL CHOLESTEROL,CALCULATED 47 mg/dL; LDL/HDL RATIO 0.6 (<3.6); SODIUM 141 mmol/L (135-145); TOTAL PROTEIN 7.2 g/dL (6.7-8.2); VLDL CHOLESTEROL 24 mg/dL
[2018-11-15 10:53] LABS: HB2 TOTAL 15.5 g/dL; HEMOGLOBIN A1C 0.9 g/dL; HEMOGLOBIN A1C % 7.5 % (4.6-6.2)
== END 2018-11-15 08:17 | disposition home or self-care (01) ==
LOC: LAB.S 08:16
PROVIDERS: ATTEND Internal Medicine
DX: E11.8 Type 2 diabetes mellitus with unspecified complications (principal); I10 Essential (primary) hypertension
CPT/HCPCS: 36415; 80053; 80061; 82043; 82570; 83036; 83721; 85025

== ENCOUNTER 2019-12-06 21:00 | Outpatient (CLI) | payer MEDICARE, OTHER | END 2019-12-06 21:01 | disposition short-term general hospital (02) | LOC: EMS 21:00 | PROVIDERS: ATTEND Surgery | DX: R20.0 Anesthesia of skin (principal); R51 Headache; R41.0 Disorientation, unspecified | CPT/HCPCS: A0425; A0429 ==

== ENCOUNTER 2020-03-10 20:57 | Outpatient (CLI) | payer MEDICARE, OTHER | END 2020-03-10 20:58 | disposition short-term general hospital (02) | LOC: EMS 20:57 | PROVIDERS: ATTEND Surgery | DX: R47.81 Slurred speech (principal); R20.0 Anesthesia of skin | CPT/HCPCS: A0425; A0427 ==

== ENCOUNTER 2020-10-14 07:54 | Outpatient (CLI) | payer MEDICARE, OTHER ==
[2020-10-14 15:36] LABS: BASOPHILS % (AUTO) 0.3 %; EOSINOPHILS % (AUTO) 0.4 %; HCT - HEMATOCRIT 46.7 % (42.0-52.0); HGB - HEMOGLOBIN 14.8 g/dL (14.0-18.0); LYMPHOCYTES # (AUTO) 1.7 10^3/uL (1.5-3.5); LYMPHOCYTES % (AUTO) 22.9 %; MEAN CORPUSCULAR HEMOGLOBIN 32.7 pg (27.0-31.0); MEAN CORPUSCULAR HGB CONC 31.7 g/dL (32.0-36.0); MEAN CORPUSCULAR VOLUME 103.1 fL (80.0-94.0); MEAN PLATELET VOLUME 11.4 fL (7.4-11.4); MONOCYTES # (AUTO) 0.7 10^3/uL (0.0-1.0); MONOCYTES % (AUTO) 9.3 %; NEUTROPHILS % (AUTO) 66.4 %; PLT - PLATELET COUNT 115 10^3/uL (130-450); RED BLOOD COUNT 4.53 10^6/uL (4.70-6.10); RED CELL DISTRIBUTION WIDTH 14.1 % (12.0-15.0); WHITE BLOOD COUNT 7.6 x10^3/uL (4.8-10.8)
[2020-10-14 16:02] LABS: ALBUMIN/GLOBULIN RATIO 1.4 (1.0-2.2); ALKALINE PHOSPHATASE 32 IU/L (42-121); ALT ALANINE AMINOTRANSFERASE 25 IU/L (10-60); AST ASPARTATE AMINOTRANSFERASE 18 IU/L (10-42); BILIRUBIN,TOTAL 0.9 mg/dL (0.2-1.0); BUN - BLOOD UREA NITROGEN 28 mg/dL (6-20); CALCIUM 9.4 mg/dL (8.5-10.3); CARBON DIOXIDE - CO2 26 mmol/L (21-32); CHLORIDE 102 mmol/L (101-111); CHOLESTEROL 192 mg/dL; CREATININE 0.9 mg/dL (0.6-1.2); GFR - MDRD 81 (>89); GLUCOSE 115 mg/dL (70-100); HDL CHOLESTEROL 96 mg/dL; LDL CHOLESTEROL,CALCULATED 70 mg/dL; LDL/HDL RATIO 0.7 (<3.6); SODIUM 140 mmol/L (135-145); TOTAL PROTEIN 6.9 g/dL (6.7-8.2); TRIGLYCERIDES 129 mg/dL; VLDL CHOLESTEROL 26 mg/dL
[2020-10-14 16:03] LABS: CREATININE,URINE 229.4 mg/dL; MICROALBUM/CREATININE RATIO,UR 81.1 ug/mg (<30.0); MICROALBUMIN,URINE 18.6 mg/dL (0-300.0)
[2020-10-14 19:11] LABS: ESTIMATED AVERAGE GLUCOSE 169 mg/dL (70-100); HEMOGLOBIN A1c% 7.5 % (4.27-6.07)
== END 2020-10-14 07:55 | disposition home or self-care (01) ==
LOC: LAB.S 07:54
PROVIDERS: ATTEND Internal Medicine
DX: E11.69 Type 2 diabetes mellitus with other specified complication (principal); E78.5 Hyperlipidemia, unspecified; E11.65 Type 2 diabetes mellitus with hyperglycemia
CPT/HCPCS: 36415; 80053; 80061; 82043; 82570; 83036; 83721; 85025

== ENCOUNTER 2021-06-20 08:35 | Outpatient (CLI) | payer MEDICARE, OTHER | END 2021-06-20 08:36 | disposition short-term general hospital (02) | LOC: EMS 08:35 | DX: S09.90XA Unspecified injury of head, initial encounter (principal); R41.0 Disorientation, unspecified; M54.2 Cervicalgia; V00.811A Fall from moving wheelchair (powered), initial encounter; Y92.481 Parking lot as the place of occurrence of the external cause | CPT/HCPCS: A0425; A0427 ==